=== PATIENT | female | born 1945 ===

== ENCOUNTER 2024-05-21 06:00 | Outpatient (RCR) | payer MEDICARE, SELFPAY | END 2024-05-31 23:59 | disposition home or self-care (01) | LOC: GPT 06:00 | PROVIDERS: Visit Provider Neurological Surgery | DX: M50.30 Other cervical disc degeneration, unspecified cervical region (principal); M47.22 Other spondylosis with radiculopathy, cervical region | CPT/HCPCS: 97110; 97112; 97140; 97162 ==

== ENCOUNTER 2024-06-29 06:30 | Outpatient (RCR) | payer MEDICARE, SELFPAY | END 2024-07-29 23:59 | disposition home or self-care (01) | LOC: GPT 06:30 | PROVIDERS: Visit Provider Neurological Surgery | DX: M54.12 Radiculopathy, cervical region (principal); M40.03 Postural kyphosis, cervicothoracic region | CPT/HCPCS: 97110; 97112; 97140; 97164 ==

== ENCOUNTER 2024-07-30 05:00 | Outpatient (RCR) | payer MEDICARE, SELFPAY | END 2024-08-28 23:59 | disposition home or self-care (01) | LOC: GPT 05:00 | PROVIDERS: Visit Provider Neurological Surgery | DX: M54.12 Radiculopathy, cervical region (principal); M40.03 Postural kyphosis, cervicothoracic region; G44.86 Cervicogenic headache | CPT/HCPCS: 97110; 97112; 97140 ==

== ENCOUNTER 2024-08-29 05:00 | Outpatient (RCR) | payer MEDICARE, SELFPAY | END 2024-09-28 23:55 | disposition home or self-care (01) | LOC: GPT 05:00 | PROVIDERS: Visit Provider Neurological Surgery | DX: M40.03 Postural kyphosis, cervicothoracic region (principal); M54.12 Radiculopathy, cervical region | CPT/HCPCS: 97110; 97112; 97140 ==

== ENCOUNTER 2024-08-29 23:55 | Outpatient (RCR) | payer MEDICARE, SELFPAY | END 2024-09-28 23:55 | disposition home or self-care (01) | LOC: GST 23:55 | PROVIDERS: Visit Provider Otolaryngology | DX: R49.8 Other voice and resonance disorders (principal); J37.0 Chronic laryngitis | CPT/HCPCS: 92524 ==

== ENCOUNTER 2024-09-29 06:00 | Outpatient (RCR) | payer MEDICARE, SELFPAY | END 2024-10-28 23:59 | disposition home or self-care (01) | LOC: GST 06:00 | PROVIDERS: Visit Provider Otolaryngology | DX: R49.8 Other voice and resonance disorders (principal); J37.0 Chronic laryngitis | CPT/HCPCS: 92507 ==

== ENCOUNTER 2024-10-29 05:00 | Outpatient (RCR) | payer MEDICARE, SELFPAY | END 2024-11-28 23:59 | disposition home or self-care (01) | LOC: GST 05:00 | PROVIDERS: Visit Provider Otolaryngology | DX: J37.0 Chronic laryngitis (principal) | CPT/HCPCS: 92507 ==

== ENCOUNTER 2024-11-29 05:00 | Outpatient (RCR) | payer MEDICARE, SELFPAY | END 2024-12-29 23:59 | disposition home or self-care (01) | LOC: GST 05:00 | PROVIDERS: Visit Provider Otolaryngology | DX: R49.8 Other voice and resonance disorders (principal); J37.0 Chronic laryngitis | CPT/HCPCS: 92507 ==

== ENCOUNTER 2024-12-30 06:25 | Outpatient (RCR) | payer MEDICARE, SELFPAY | END 2025-01-03 13:27 | disposition home or self-care (01) | LOC: GST 06:25 | PROVIDERS: Visit Provider Otolaryngology | DX: R49.8 Other voice and resonance disorders (principal); J37.0 Chronic laryngitis | CPT/HCPCS: 92507 ==